=== PATIENT | male | born 1985 | race Two or more races ===

== ENCOUNTER 2016-04-10 14:11 | Emergency (ER) | payer OTHER | END 2016-04-10 14:45 | disposition home or self-care (01) | LOC: CED 14:11 | DX: L30.9 Dermatitis, unspecified (principal); J45.909 Unspecified asthma, uncomplicated | CPT/HCPCS: 96372; 99283; J1100 ==

== ENCOUNTER 2016-05-16 11:16 | Emergency (ER) | payer OTHER | END 2016-05-16 11:34 | disposition home or self-care (01) | LOC: CED 11:16 | DX: T78.40XA Allergy, unspecified, initial encounter (principal) | CPT/HCPCS: 96372; 99283; J1100 ==